=== PATIENT | male | born 1985 | race Caucasian/White ===

== ENCOUNTER 2017-02-16 23:01 | Emergency (ER) | payer OTHER ==
[~2017-02-16 23:01] MED LIST: PRILOSEC20 MG PO
[2017-02-17 00:45] VITALS: BP 126/74
== END 2017-02-17 00:45 | disposition left against medical advice (07) ==
LOC: ED 23:01
DX: S61.210D Laceration without foreign body of right index finger without damage to nail, subsequent encounter (principal); X58.XXXD Exposure to other specified factors, subsequent encounter; Y92.89 Other specified places as the place of occurrence of the external cause; Y99.8 Other external cause status

== ENCOUNTER 2017-10-31 06:51 | Emergency (ER) | payer OTHER ==
[2017-10-31 07:44] LABS: BASOPHIL % 0.7 % (0-2); PLATELET COUNT 269 x10^3mcL (130-400); RED CELL DISTRIBUTION WIDTH 13.8 % (11.5-14.5)
[2017-10-31 07:57] LABS: CALCIUM 9.1 mg/dL (8.5-10.1); CARBON DIOXIDE 28.6 mmol/L (21-32); CHLORIDE SERUM 101 mmol/L (98-107); CREATININE SERUM 1.1 mg/dL (0.7-1.3); GFR1 > 60 mL/min; GLUCOSE SERUM 108 mg/dL (74-106); SODIUM SERUM 136 mmol/L (136-145)
[2017-10-31 08:02] LABS: ALKALINE PHOSPHATASE 79 U/L (46-116); ALT/SGPT 169 U/L (16-63); AST/SGOT 61 U/L (15-37); BILIRUBIN TOTAL 0.6 mg/dL (0.20-1.00); LIPASE 72 IU/L (73-393); TOTAL PROTEIN, SERUM 7.6 g/dL (6.4-8.2)
[2017-10-31 08:05] LABS: ALBUMIN 3.3 g/dL (3.4-5.0)
[2017-10-31 08:46] VITALS: BP 121/67
== END 2017-10-31 08:47 | disposition home or self-care (01) ==
LOC: ED 06:51
PROVIDERS: Emergency Medicine
DX: N23 Unspecified renal colic (principal); F17.210 Nicotine dependence, cigarettes, uncomplicated
CPT/HCPCS: 83880; J1885; J2270; J2405; J7030

== ENCOUNTER 2018-04-17 22:25 | Emergency (ER) | payer OTHER ==
[~2018-04-17] VITALS: Ht 182.9 cm; Wt 110.3 kg
[2018-04-17 22:51] VITALS: BP 135/104; Ht 182.9 cm; Wt 110.3 kg
== END 2018-04-18 00:10 | disposition left against medical advice (07) ==
LOC: ED 22:25
DX: Z53.21 Procedure and treatment not carried out due to patient leaving prior to being seen by health care provider (principal)

== ENCOUNTER 2018-05-06 18:05 | Emergency (ER) | payer OTHER ==
[~2018-05-06] VITALS: Ht 182.9 cm; Wt 109.8 kg
[2018-05-06 18:12] VITALS: Ht 182.9 cm; Wt 109.8 kg
[2018-05-06 19:04] VITALS: BP 128/78
== END 2018-05-06 19:04 | disposition home or self-care (01) ==
LOC: ED 18:05
DX: L03.114 Cellulitis of left upper limb (principal); W57.XXXA Bitten or stung by nonvenomous insect and other nonvenomous arthropods, initial encounter; Y93.89 Activity, other specified; Y92.89 Other specified places as the place of occurrence of the external cause; Y99.8 Other external cause status

== ENCOUNTER 2018-10-19 21:27 | Emergency (ER) | payer SELFPAY ==
[~2018-10-19] VITALS: Ht 182.9 cm; Wt 112.5 kg
[2018-10-19 21:31] VITALS: Ht 182.9 cm; Wt 112.5 kg
[2018-10-19 23:19] VITALS: BP 129/89
== END 2018-10-19 23:19 | disposition home or self-care (01) ==
LOC: ED 21:27
DX: S61.217A Laceration without foreign body of left little finger without damage to nail, initial encounter (principal); F17.210 Nicotine dependence, cigarettes, uncomplicated; Z90.49 Acquired absence of other specified parts of digestive tract; Z90.89 Acquired absence of other organs; Z86.19 Personal history of other infectious and parasitic diseases; W26.9XXA Contact with unspecified sharp object(s), initial encounter; Y93.89 Activity, other specified; Y92.89 Other specified places as the place of occurrence of the external cause; Y99.8 Other external cause status
CPT/HCPCS: A4570; J2001

== ENCOUNTER 2019-08-15 15:42 | Emergency (ER) | payer OTHER ==
[~2019-08-15] VITALS: Ht 182.9 cm; Wt 105.2 kg
[2019-08-15 15:51] VITALS: Ht 182.9 cm; Wt 105.2 kg
[2019-08-15 21:44] VITALS: BP 142/93
== END 2019-08-15 19:00 | disposition home or self-care (01) ==
LOC: ED 15:42
DX: S51.812A Laceration without foreign body of left forearm, initial encounter (principal); J45.909 Unspecified asthma, uncomplicated; Z86.19 Personal history of other infectious and parasitic diseases; Z90.49 Acquired absence of other specified parts of digestive tract; W26.0XXA Contact with knife, initial encounter; Y93.89 Activity, other specified; Y92.89 Other specified places as the place of occurrence of the external cause; Y99.8 Other external cause status
CPT/HCPCS: J2001

== ENCOUNTER 2019-08-17 13:39 | Emergency (ER) | payer OTHER ==
[~2019-08-17] VITALS: Ht 182.9 cm; Wt 95.3 kg
[2019-08-17 14:14] VITALS: BP 126/91; Ht 182.9 cm; Wt 95.3 kg
== END 2019-08-17 15:02 | disposition home or self-care (01) ==
LOC: ED 13:39
DX: S51.812D Laceration without foreign body of left forearm, subsequent encounter (principal); J45.909 Unspecified asthma, uncomplicated; X58.XXXD Exposure to other specified factors, subsequent encounter

== ENCOUNTER 2019-08-20 17:32 | Emergency (ER) | payer SELFPAY ==
[~2019-08-20] VITALS: Ht 182.9 cm; Wt 106.1 kg
[2019-08-20 17:39] VITALS: Ht 182.9 cm; Wt 106.1 kg
[2019-08-20 19:29] VITALS: BP 141/85
== END 2019-08-20 19:29 | disposition home or self-care (01) ==
LOC: ED 17:32
DX: S51.812D Laceration without foreign body of left forearm, subsequent encounter (principal); J45.909 Unspecified asthma, uncomplicated; Z86.19 Personal history of other infectious and parasitic diseases; Z98.890 Other specified postprocedural states; X58.XXXD Exposure to other specified factors, subsequent encounter

== ENCOUNTER 2019-08-22 19:00 | Emergency (ER) | payer SELFPAY ==
[~2019-08-22] VITALS: Ht 182.9 cm; Wt 104.0 kg
[2019-08-22 19:55] VITALS: BP 147/101
== END 2019-08-22 19:55 | disposition home or self-care (01) ==
LOC: ED 19:00
DX: S51.811D Laceration without foreign body of right forearm, subsequent encounter (principal); J45.909 Unspecified asthma, uncomplicated; Z90.49 Acquired absence of other specified parts of digestive tract; W26.8XXD Contact with other sharp object(s), not elsewhere classified, subsequent encounter

== ENCOUNTER 2019-12-08 16:39 | Emergency (ER) | payer SELFPAY ==
[~2019-12-08] VITALS: Ht 182.9 cm; Wt 104.5 kg
[2019-12-08 17:13] VITALS: Ht 182.9 cm; Wt 104.5 kg
[2019-12-08 18:01] VITALS: BP 126/76
== END 2019-12-08 18:09 | disposition home or self-care (01) ==
LOC: ED 16:39
DX: N21.1 Calculus in urethra (principal)